=== PATIENT | male | born 1960 | race Caucasian/White ===

== ENCOUNTER 2017-10-12 14:14 | Emergency (ER) | payer BC ==
[~2017-10-12] VITALS: Ht 170.2 cm; Wt 72.0 kg
[2017-10-12 14:16] VITALS: BP 126/68; PULSE 101; RESP 12; TEMP 99.7; O2SAT 98
--- NOTE | 2017-10-12 14:57 | PD ---
HPI Chief Complaint: Complaint Time Seen by Provider: 14:33 Travel History International Travel<30 days: No Contact w/Intl Traveler<30days: No Traveled to known affect area: No History of Present Illness HPI 57-year-old male that presents to the ED for evaluation of burning with urination. Per patient she's had this for about 4 days now. Per patient initially started with left flank pain. Per patient it radiated down but he went away on its own. Per patient noted only hurts when he urinates. Otherwise he has no symptoms. Per patient he has minimal discomfort otherwise. He denies any testicular pain. No rectal pain. No abdominal discomfort. No back pain anymore. Per patient the discomfort 7 out of 10 when she urinates. He has had a history of kidney stones in the past and feels similar to his previous kidney stones with the exception of burning with urination which is new. No discoloration of the urine. Per patient he feels like he has to go but minimal comes out. He does have a history of a large prostate but was told by urologist that he does not have this. He denies any other medical issues at this time. Per patient he has subjective fevers. Has been taking OTC ibuprofen with minimal relief. PFSH Past Medical History High Cholesterol: Yes Diminished Hearing: No Kidney Stones: Yes Tetanus Vaccination: Unknown Influenza Vaccination: No ?: Not Past Surgical History Tonsillectomy: Yes Social History Alcohol Use: Yes (4-5 times a week ) Tobacco Use: No Substance Use: No Allergies-Medications (Allergen,Severity, Reaction): Coded Allergies: No Known Allergies (Unverified , 10/12/17) Reported Meds & Prescriptions Reported Meds & Active Scripts Active Flomax (Tamsulosin HCl) 0.4 Mg Cap 0.4 Mg PO HS Diclofenac Sodium DR (Diclofenac Sodium) 75 Mg Tabdr 75 Mg PO BID Cipro (Ciprofloxacin HCl) 500 Mg Tab 500 Mg PO BID 7 Days Review of Systems Except as stated in HPI: all other systems reviewed are Neg Physical Exam Narrative GENERAL: SKIN: Warm and dry. HEAD: Atraumatic. Normocephalic. EYES: Pupils equal and round. No scleral icterus. No injection or drainage. ENT: No nasal bleeding or discharge. Mucous membranes pink and moist. Tongue is midline. No uvula deviation. NECK: Trachea midline. No JVD. CARDIOVASCULAR: Regular rate and rhythm. No murmurs, S3, S4. RESPIRATORY: No accessory muscle use. Clear to auscultation. Breath sounds equal bilaterally. GASTROINTESTINAL: Abdomen soft, non-tender, nondistended. Hepatic and splenic margins not palpable. MUSCULOSKELETAL: Extremities without clubbing, cyanosis, or edema. No obvious deformities. Full range of motion of the upper and lower extremities bilaterally. 2+ pulses bilaterally. NEUROLOGICAL: Awake and alert. No obvious cranial nerve deficits. Motor grossly within normal limits. Five out of 5 muscle strength in the arms and legs. Normal speech. PSYCHIATRIC: Appropriate mood and affect; insight and judgment normal. Data Data Last Documented VS Vital Signs Date Time Temp Pulse Resp B/P (MAP) Pulse Ox O2 Delivery O2 Flow Rate FiO2 10/12/17 19:03 10/12/17 17:31 18 10/12/17 14:16 99.7 101 98 Orders Orders Complete Blood Count With Diff (10/12/17 14:33) Basic Metabolic Panel (Bmp) (10/12/17 14:33) Urinalysis - C+S If Indicated (10/12/17 14:33) Ct Abd/Pel W/O Iv Contrast (10/12/17 ) Urine Culture (10/12/17 14:40) Ciprofloxacin 400 Mg Premix (Cipro 400 M (10/12/17 15:30) Ondansetron Inj (Zofran Inj) (10/12/17 16:00) Ketorolac Inj (Toradol Inj) (10/12/17 16:00) Ed Discharge Order (10/12/17 16:03) Sodium Chlorid 0.9% 500 Ml Inj (Ns 500 M (10/12/17 16:15) Ed Poc Ultrasound (10/12/17 ) Urinary Catheter Insert/Apply (10/12/17 17:24) Morphine Inj (Morphine Inj) (10/12/17 17:30) Lidocaine 2% Jelly (Xylocaine 2% Jelly) (10/12/17 17:45) Morphine Inj (Morphine Inj) (10/12/17 18:00) Labs Laboratory Tests Test 10/12/17 14:40 White Blood Count 12.0 TH/MM3 Red Blood Count 4.39 MIL/MM3 Hemoglobin 14.2 GM/DL Hematocrit 41.7 % Mean Corpuscular Volume 95.0 FL Mean Corpuscular Hemoglobin 32.4 PG Mean Corpuscular Hemoglobin Concent 34.1 % Red Cell Distribution Width 12.9 % Platelet Count 248 TH/MM3 Mean Platelet Volume 7.5 FL Neutrophils (%) (Auto) 85.0 % Lymphocytes (%) (Auto) 7.3 % Monocytes (%) (Auto) 6.9 % Eosinophils (%) (Auto) 0.3 % Basophils (%) (Auto) 0.5 % Neutrophils # (Auto) 10.2 TH/MM3 Lymphocytes # (Auto) 0.9 TH/MM3 Monocytes # (Auto) 0.8 TH/MM3 Eosinophils # (Auto) 0.0 TH/MM3 Basophils # (Auto) 0.1 TH/MM3 CBC Comment DIFF FINAL Differential Comment Urine Color YELLOW Urine Turbidity HAZY Urine pH 6.0 Urine Specific [place] 1.012 Urine Protein TRACE mg/dL Urine Glucose (UA) NEG mg/dL Urine Ketones NEG mg/dL Urine Occult Blood TRACE Urine Nitrite NEG Urine Bilirubin NEG Urine Urobilinogen LESS THAN 2.0 MG/DL Urine Leukocyte Esterase LARGE Urine RBC 6 /hpf Urine WBC /hpf Urine Bacteria MOD /hpf Microscopic Urinalysis Comment CULTURE INDICATED Blood Urea Nitrogen 12 MG/DL Creatinine 1.09 MG/DL Random Glucose 98 MG/DL Calcium Level 9.2 MG/DL Sodium Level 137 MEQ/L Potassium Level 4.4 MEQ/L Chloride Level 104 MEQ/L Carbon Dioxide Level 26.8 MEQ/L Anion Gap 6 MEQ/L Estimat Glomerular Filtration Rate 70 ML/MIN [facility] Medical Decision Making Medical Screen Exam Complete: Yes Emergency Medical Condition: Yes Medical Record Reviewed: Yes Interpretation(s) CBC & BMP Diagram 10/12/17 14:40 Calcium Level 9.2 UA shows signs of bacteriuria as well as leukocytosis Last Impressions Abdomen/Pelvis CT 10/12/17 0000 Signed Impressions: Service Date/Time: Thursday, October 12, 2017 15:13 - CONCLUSION: 1. Bilateral nonobstructing renal calculi. 2. Enlarged prostate. Mau Evans MD Differential Diagnosis urethrolithiasis versus pyelonephritis versus UTI versus urethritis versus kidney stone Narrative Course 57-year-old male that presents to the ED for evaluation of pain with urination. Patient was properly examined and was found to have signs and symptoms consistent what appears to be kidney infection. Labs and imaging were ordered. Labs and imaging showed no sign of acute disease other than UTI. Patient was reassured. At this time patient does have kidney stones but no ureteral stones. Patient does have multiple kidney stones. He recommends the patient. Urologist. I do not believe this is causing the patient's symptoms. Patient will be treated with Cipro here in the ED. Patient was given prescription for this as well. Diclofenac sodium given for pain as needed. Told to take Azo [id number] as well. See ED worsening symptoms or follow with PCP. Before being DC patient stated he feels he is no urinating. Dr Ricardo performed bedside US which showed 500 ml of fluid. Cath recommended and placed with good results. Told to get it removed in 1 week and follow up with urologist. Diagnosis Primary Impression: Cystitis Patient Instructions: General Instructions Additional Instructions: Take medications as prescribed. Drink plenty of fluids. See ED for any worsening symptoms. Your CAT scan did show that he have a couple of kidney stones on each kidney. He said this moment she u any pain but it they do decide to past there will be no flank pain. This develops and is too excruciating for you come to the ED to get evaluated otherwise follow-up with your doctor. Follow with urologist for further evaluation of the kidney stones as sometimes they can do procedures to prevent him from causing no discomfort otherwise. You can take AZO (pyridium) for burning pain. This medication can make your urine "Roe-julianne" color, this is a normal side effect. Med/Other Pt SpecificInfo: Prescription(s) given Scripts Tamsulosin (Flomax) 0.4 Mg Cap 0.4 MG PO HS for Manage Prostate Problems, #30 CAP 0 Refills Prov: Jacob Ricardo MD 10/12/[address] (Diclofenac Sodium DR) 75 Mg Tabdr 75 MG PO BID, #30 TAB 0 Refills Prov: Jacob Ricardo MD 10/12/17 Ciprofloxacin (Cipro) 500 Mg Tab 500 MG PO BID for Infection for 7 Days, #14 TAB 0 Refills Prov: Jacob Ricardo MD 10/12/17 Disposition: 01 DISCHARGE HOME Condition: Stable Bhavin Peña Oct 12, 2017 14:57
[2017-10-12 15:03] LABS: AUTOMATED NEUTROPHIL # 10.2 TH/MM3 (1.8-7.7); BASOPHIL # 0.1 TH/MM3 (0-0.2); BASOPHIL % 0.5 % (0.0-2.0); EOSINOPHIL % 0.3 % (0.0-4.0); HEMATOCRIT 41.7 % (39.0-51.0); HEMOGLOBIN 14.2 GM/DL (13.0-17.0); LYMPH % 7.3 % (9.0-44.0); LYMPHOCYTE # 0.9 TH/MM3 (1.0-4.8); MEAN CORPUSCULAR HEMOGLOBIN 32.4 PG (27.0-34.0); MEAN CORPUSCULAR HGB CONC 34.1 % (32.0-36.0); MEAN PLATELET VOLUME 7.5 FL (7.0-11.0); MONO % 6.9 % (0.0-8.0); MONOCYTE # 0.8 TH/MM3 (0-0.9); PLATELET COUNT 248 TH/MM3 (150-450); RED BLOOD COUNT 4.39 MIL/MM3 (4.50-5.90); RED CELL DISTRIBUTION WIDTH 12.9 % (11.6-17.2)
[2017-10-12 15:15] LABS: BACTERIA, URINE MOD /hpf; BILIRUBIN, URINE NEG (NEG); BLOOD, URINE TRACE (NEG); GLUCOSE,URINE NEG (NEG); KETONE, URINE NEG (NEG); NITRITE,URINE NEG (NEG); URINE COLOR YELLOW (YELLW/STRAW); URINE LEUKOCYTE ESTERASE LARGE (NEG)
[2017-10-12 15:24] LABS: BICARBONATE 26.8 MEQ/L (21.0-32.0); CALCIUM 9.2 MG/DL (8.5-10.1); CREATININE 1.09 MG/DL (0.60-1.30)
[2017-10-12] MEDS ORDERED: CIPROFLOXACIN 400 MG PREMIX 200 ML IV ONE (15:30)
--- NOTE | 2017-10-12 15:36 | RADRPT ---
EXAM DATE/TIME: 10/12/2017 15:13 [place] COMPARISON: No previous studies available for comparison. INDICATIONS : Lower abdomen pain with dysuria. ORAL CONTRAST: No oral contrast ingested. RADIATION DOSE: 8.73 CTDIvol (mGy) MEDICAL HISTORY : Renal calculi. SURGICAL HISTORY : None. ENCOUNTER: Initial ACUITY: 3 days PAIN SCALE: 8/10 LOCATION: lower quadrant abdomen TECHNIQUE: Volumetric scanning of the abdomen and pelvis was performed. Using automated exposure control and ad justment of the mA and/or kV according to patient size, radiation dose was kept as low as reasonably achievable to obtain optimal diagnostic quality images. DICOM format image data is available electro nically for review and comparison. FINDINGS: LOWER LUNGS: The visualized lower lungs are clear. LIVER: Homogeneous density without lesion. There is no dilation of the biliary tree. No calcified gallston es. SPLEEN: Normal size without lesion. PANCREAS: Within normal limits. KIDNEYS: 2 mm calculus in the upper pole of the right kidney on image #16. 2 mm calculus in the upper pole the left kidney on image over 20. 3 mm lower pole calculus on the left on image #44. 2 mm lower pole mehnaz culus on the left on image #44. No evidence of hydronephrosis or hydroureter. ADRENAL GLANDS: Within normal limits. VASCULAR: There is no aortic aneurysm. BOWEL/MESENTERY: No evidence of bowel dilatation. No free air or free fluid. Appendix within normal limits. ABDOMINAL WALL: Within normal limits. RETROPERITONEUM: There is no lymphadenopathy. BLADDER: No wall thickening or mass. REPRODUCTIVE: 2 punctate prostate calcifications are seen. Each is mildly eccentric. Prostate is enlarged measuring 5.3 cm in transverse dimension. INGUINAL: There is no lymphadenopathy or hernia. MUSCULOSKELETAL: Within normal limits for patient age. CONCLUSION: 1. Bilateral nonobstructing renal calculi. 2. Enlarged prostate. Mau Evans MD on October 12, 2017 at 15:30 Board Certified Radiologist. This report was verified electronically.
[2017-10-12] MEDS ORDERED: DICL75TA PO (15:56)
[2017-10-12] MEDS ORDERED: CIPR-9 PO (15:56)
[2017-10-12] MEDS ORDERED: ONDANSETRON HCL 4 MG/2 ML VIAL IV PUSH ONE (16:00)
[2017-10-12] MEDS ORDERED: KETOROLAC TROMETHAMINE 30 MG/ML (IVP) VIAL IV PUSH ONE (16:00)
[2017-10-12] MEDS ORDERED: SODIUM CHLORID 0.9% 500 ML INJ 500 ML IV ONE (16:15)
[2017-10-12] MEDS ORDERED: TAMS5CAP PO (17:23)
--- NOTE | 2017-10-12 17:23 | PD ---
Data Data Last Documented VS Vital Signs Date Time Temp Pulse Resp B/P (MAP) Pulse Ox O2 Delivery O2 Flow Rate FiO2 10/12/17 19:03 10/12/17 17:31 18 10/12/17 14:16 99.7 101 98 Orders Orders Complete Blood Count With Diff (10/12/17 14:33) Basic Metabolic Panel (Bmp) (10/12/17 14:33) Urinalysis - C+S If Indicated (10/12/17 14:33) Ct Abd/Pel W/O Iv Contrast (10/12/17 ) Urine Culture (10/12/17 14:40) Ciprofloxacin 400 Mg Premix (Cipro 400 M (10/12/17 15:30) Ondansetron Inj (Zofran Inj) (10/12/17 16:00) Ketorolac Inj (Toradol Inj) (10/12/17 16:00) Ed Discharge Order (10/12/17 16:03) Sodium Chlorid 0.9% 500 Ml Inj (Ns 500 M (10/12/17 16:15) Ed Poc Ultrasound (10/12/17 ) Urinary Catheter Insert/Apply (10/12/17 17:24) Morphine Inj (Morphine Inj) (10/12/17 17:30) Lidocaine 2% Jelly (Xylocaine 2% Jelly) (10/12/17 17:45) Morphine Inj (Morphine Inj) (10/12/17 18:00) Labs Laboratory Tests Test 10/12/17 14:40 White Blood Count 12.0 TH/MM3 Red Blood Count 4.39 MIL/MM3 Hemoglobin 14.2 GM/DL Hematocrit 41.7 % Mean Corpuscular Volume 95.0 FL Mean Corpuscular Hemoglobin 32.4 PG Mean Corpuscular Hemoglobin Concent 34.1 % Red Cell Distribution Width 12.9 % Platelet Count 248 TH/MM3 Mean Platelet Volume 7.5 FL Neutrophils (%) (Auto) 85.0 % Lymphocytes (%) (Auto) 7.3 % Monocytes (%) (Auto) 6.9 % Eosinophils (%) (Auto) 0.3 % Basophils (%) (Auto) 0.5 % Neutrophils # (Auto) 10.2 TH/MM3 Lymphocytes # (Auto) 0.9 TH/MM3 Monocytes # (Auto) 0.8 TH/MM3 Eosinophils # (Auto) 0.0 TH/MM3 Basophils # (Auto) 0.1 TH/MM3 CBC Comment DIFF FINAL Differential Comment Urine Color YELLOW Urine Turbidity HAZY Urine pH 6.0 Urine Specific [place] 1.012 Urine Protein TRACE mg/dL Urine Glucose (UA) NEG mg/dL Urine Ketones NEG mg/dL Urine Occult Blood TRACE Urine Nitrite NEG Urine Bilirubin NEG Urine Urobilinogen LESS THAN 2.0 MG/DL Urine Leukocyte Esterase LARGE Urine RBC 6 /hpf Urine WBC /hpf Urine Bacteria MOD /hpf Microscopic Urinalysis Comment CULTURE INDICATED Blood Urea Nitrogen 12 MG/DL Creatinine 1.09 MG/DL Random Glucose 98 MG/DL Calcium Level 9.2 MG/DL Sodium Level 137 MEQ/L Potassium Level 4.4 MEQ/L Chloride Level 104 MEQ/L Carbon Dioxide Level 26.8 MEQ/L Anion Gap 6 MEQ/L Estimat Glomerular Filtration Rate 70 ML/MIN MDM Supervised Visit with BRIEN: Yes Narrative Course I, Dr. Ricardo, have reviewed the advance practice practitioner's documentation and am in agreement, met with the patient face to face, made the diagnosis, and the medical decision making was done by me. *My assessment and Findings: Patient seen and examined by me in addition to Bhavin Peña PA-C, this is a 57 -year-old male presents the emergency department for evaluation of dysuria, patient circumcised male, no symptoms of urinary retention, does have a history of kidney stones and CAT scan shows nonobstructing kidney stones. UA shows evidence for UTI, with urinary retention consider prostatitis, will be covered with antibiotics. Unfortunately patient was not able to complete void his bladder, 500 cc of urine remained on bedside ultrasound a Woodard catheter was placed and will be discharged with leg bag, discussed return to ED criteria and discussed return to ED in 7 days if cannot follow-up with urologist for trial of voiding. Follow-up the primary care physician. He is stable for discharge. Procedures Procedure Narrative Bedside ultrasound: Transabdominal views obtained of the post void bladder showing approximately 500 cc in the bladder. Diagnosis Primary Impression: Cystitis Patient Instructions: General Instructions, Pelvic Pain in Men (ED) Departure Forms: Tests/Procedures Additional Instruction: Take medications as prescribed. Drink plenty of fluids. See ED for any worsening symptoms. Your CAT scan did show that he have a couple of kidney stones on each kidney. He said this moment she u any pain but it they do decide to past there will be no flank pain. This develops and is too excruciating for you come to the ED to get evaluated otherwise follow-up with your doctor. Follow with urologist for further evaluation of the kidney stones as sometimes they can do procedures to prevent him from causing no discomfort otherwise. You can take AZO (pyridium) for burning pain. This medication can make your urine "Roe-julianne" color, this is a normal side effect. Scripts Tamsulosin (Flomax) 0.4 Mg Cap 0.4 MG PO HS for Manage Prostate Problems, #30 CAP 0 Refills Prov: Jacob Ricardo MD 10/12/[address] (Diclofenac Sodium DR) 75 Mg Tabdr 75 MG PO BID, #30 TAB 0 Refills Prov: Jacob Ricardo MD 10/12/17 Ciprofloxacin (Cipro) 500 Mg Tab 500 MG PO BID for Infection for 7 Days, #14 TAB 0 Refills Prov: Jacob Ricardo MD 10/12/17 Disposition: 01 DISCHARGE HOME Condition: Stable Jacob Ricardo MD Oct 12, 2017 17:23
[2017-10-12] MEDS ORDERED: MORPHINE SULFATE 4 MG/ML INJ IV PUSH ONE (17:30)
[2017-10-12 17:31] VITALS: RESP 18
[2017-10-12] MEDS ORDERED: LIDOCAINE 2% JELLY 30 ML TUBE TOPICAL ONE (17:45)
[2017-10-12] MEDS ORDERED: MORPHINE SULFATE 2 MG/ML INJ IV PUSH ONE (18:00)
== END 2017-10-12 19:17 | disposition home or self-care (01) ==
LOC: NEPE 14:14
DX: N30.90 Cystitis, unspecified without hematuria (principal); B96.20 Unspecified Escherichia coli [E. coli] as the cause of diseases classified elsewhere
CPT/HCPCS: 74176; 80048; 81001; 85025; 87077; 87086; 87186; 96365; 96375; 99285; J0744; J1885; J2270; J2405; J7040